=== PATIENT | female | born 1965 | race Caucasian/White ===

== ENCOUNTER 2019-08-11 16:26 | Emergency (ER) | payer BC ==
--- NOTE | 2019-08-11 16:37 | PDOC ---
History of Present Illness - General Chief Complaint: Pain, Acute Stated Complaint: LOW BACK PAIN Time Seen by Provider: 08/11/19 16:36 - History of Present Illness Initial Comments: 08/11/19 16:50 Chief complaint: Low back pain HPI: Patient with chronic intermittent low back pain, with episodes every year or so, attributed to muscle spasm, has had bilateral sacral pain with a sensation of tightness in the muscles of the low back for 3 to 4 days. She has been taking Motrin and Flexeril without relief. The pain seems to be worsening. Similar episodes in the past have been treated with Toradol with good response. No definite injury, although she is jostled around while walking her dogs frequently. Review of systems: No radiation of pain to the buttock or legs. No distal numbness tingling pain or weakness in the lower extremities. No fever/chills, URI symptoms, sore throat, cough, chest pain, shortness of breath, abdominal pain, nausea, vomiting, diarrhea, dysuria or other urinary tract symptoms, hematuria, vaginal bleeding or discharge. 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 No subsequent symptoms. Thyroidectomy. Social/family history reviewed and noncontributory Physical exam: Alert and oriented well-developed well-nourished mild to moderate distress due to low back pain, especially with movement Afebrile, vital signs normal LS spine: The lumbar lordosis is well preserved. There is no point tenderness or deformity of the thoracic, lumbar, or sacral spine. There is marked paravertebral muscle spasm that is visible and palpable. Straight leg raising is negative. Pulses are full. No distal sensory or motor deficits in the lower extremities. 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 Good response to Toradol, discharged ambulatory with considerable pain relief to continue medication and follow-up as needed. Past History - Past Medical History Allergies/Adverse Reactions: Allergies Allergy/AdvReac Type Severity Reaction Status Date / Time No Known Allergies Allergy Verified 08/11/19 16:26 Home Medications: Ambulatory Orders Levothyroxine [Synthroid -] 125 mcg PO DAILY 04/19/13 Ketorolac Tromethamine [Toradol] 10 mg PO Q6H #20 tablet 08/11/19 hydrOXYzine PAMOATE [Vistaril -] 25 mg PO TID PRN #15 capsule 08/11/19 Thyroid Disease: Yes (HYPOTHYROIDISM) - Surgical History Appendectomy: Yes (AGE 8) - Immunization History Td Vaccination: Yes TDAP Vaccination: Yes Immunization Up to Date: Yes - Psycho Social/Smoking Cessation Hx Smoking Status: No Smoking History: Former smoker Number of Cigarettes Smoked Daily: 0 Hx Alcohol Use: No Substance Use Type: None Medical Decision Making - Medical Decision Making 08/11/19 17:29 Pain and spasm improved. Patient fully ambulatory and in no significant pain at discharge to continue medication and follow-up as needed. Discharge - Discharge Information Problems reviewed: Yes Clinical Impression/Diagnosis: Low back strain Qualifiers: Encounter type: initial encounter Qualified Code(s): S39.012A - Strain of muscle, fascia and tendon of lower back, initial encounter Condition: Improved Disposition: HOME - Admission No - Additional Discharge Information Prescriptions: hydrOXYzine PAMOATE [Vistaril -] 25 mg PO TID PRN #15 capsule PRN Reason: Muscle pain and spasm Ketorolac Tromethamine [Toradol] 10 mg PO Q6H #20 tablet - Follow up/Referral Referrals: Dana Kirkland MD [Primary Care Provider] - Gabriele Madera MD [Staff Physician] - - Patient Discharge Instructions Patient Printed Discharge Instructions: DI for Low Back Pain Additional Instructions: Avoid sitting in a chair or car for prolonged periods of time. Be as active as possible. Medication as directed. Follow-up with patient service specialist/orthopedist if symptoms persist or worsen. - Post Discharge Activity Work/Back to School Note: Back to Work
[2019-08-11] MEDS ORDERED: KETOROLAC TROMETHAMINE 60 MG/2 ML VIAL IM ONE (16:49)
[2019-08-11 16:56] VITALS: BP 149/98; PULSE 74; TEMP 98.5; BMI 28.0
[2019-08-11] MEDS ORDERED: KETOROLAC TROMETHAMINE 60 MG/2 ML VIAL ONE (16:57)
== END 2019-08-11 17:29 | disposition home or self-care (01) ==
LOC: FER 16:26
PROC: 3E0233Z Introduction of Anti-inflammatory into Muscle, Percutaneous Approach (ICD-10-PCS; principal; 2019-08-11)
DX: S39.012A Strain of muscle, fascia and tendon of lower back, initial encounter (principal); Z87.891 Personal history of nicotine dependence; X58.XXXA Exposure to other specified factors, initial encounter; Y93.89 Activity, other specified; Y92.89 Other specified places as the place of occurrence of the external cause; E03.9 Hypothyroidism, unspecified
CPT/HCPCS: 99284-25